=== PATIENT | male | born 1950 | race Caucasian/White ===

== ENCOUNTER 2022-01-05 11:27 | Day surgery (SDC) | payer BC ==
[~2022-01-05 11:27] MED LIST: Lactated Ringers 1,000 ML IV SCH; Sodium Chloride 0.9% 10 ML Syringe FLUSH PRN
[2022-01-05] MEDS ORDERED: Propofol 200 MG/20 ML SDV IV ONE (11:28)
[2022-01-05] MEDS ORDERED: Midazolam 1 MG/ML 2 ML SDV ONE (11:35)
[2022-01-05] MEDS ORDERED: Propofol 200 MG/20 ML SDV ONE ×2 (11:35→13:02)
[2022-01-05] MEDS: Lactated Ringers 1,000 ML IV SCH (12:00)
[2022-01-05] MEDS ORDERED: Sodium Chloride 0.9% 10 ML Syringe FLUSH PRN (12:00)
[2022-01-05 13:56] VITALS: BP 110/67; PULSE 69
== END 2022-01-05 14:10 | disposition home or self-care (01) ==
LOC: KA.SDS 11:27
PROVIDERS: ATTEND Family Medicine
DX: Z12.11 Encounter for screening for malignant neoplasm of colon (principal); J45.909 Unspecified asthma, uncomplicated; K21.9 Gastro-esophageal reflux disease without esophagitis; E78.5 Hyperlipidemia, unspecified; F17.200 Nicotine dependence, unspecified, uncomplicated; Z91.048 Other nonmedicinal substance allergy status; Z98.890 Other specified postprocedural states; Z80.0 Family history of malignant neoplasm of digestive organs; Z79.899 Other long term (current) drug therapy
CPT/HCPCS: J2250; J2704; J7120